=== PATIENT | male | born 1960 | race Caucasian/White ===

== ENCOUNTER → 2021-01-22 | Outpatient (CLI) | payer BC ==
--- NOTE | 2021-01-22 12:50 | REPVR ---
PROCEDURE INFORMATION: Exam: CT Temporal Bones Without Contrast. Exam date and time: 01/22/2021 9:00 AM Age: 60 years old Clinical indication: Other: Central perforation of tympanic membrane, left ear TECHNIQUE: Imaging protocol: Computed tomography images of the temporal bones without contrast. Radiation optimization: All CT scans at this facility use at least one of these dose optimization techniques: automated exposure control; mA and/or kV adjustment per patient size (includes targeted exams where dose is matched to clinical indication); or iterative reconstruction. COMPARISON: No relevant prior studies available. FINDINGS: Right inner ear: Normal. Right ossicles and middle ear: Right middle ear ossicles are surgically absent Right external auditory canal: Normal. Right facial nerve canal: Normal. Right jugular foramen: No jugular dehiscence. Right carotid canal: No aberrant carotid canal. Right mastoid air cells: There are right mastoidectomy changes. Left inner ear: Normal. Left ossicles and middle ear: There is rounded soft tissue within the left middle ear cavity projecting over the stapes footplate, suggestive of a cholesteatoma halle. The stapes is not well visualized. Left external auditory canal: Normal. Left facial nerve canal: Normal. Left jugular foramen: No jugular dehiscence. Left carotid canal: No aberrant carotid canal. Left mastoid air cells: There is scattered opacification of left mastoid air cells. Soft tissues: Unremarkable. 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 Electronically signed by: Suly Heaton On 01/22/2021 12:51:07 PM
== END ==
LOC: M RAD 08:40
PROVIDERS: ATTEND Otolaryngology
DX: H72.02 Central perforation of tympanic membrane, left ear (principal)